=== PATIENT | female | born 1985 | race Caucasian/White ===

== ENCOUNTER → 2018-01-11 | Outpatient (CLI) | payer OTHER | END | disposition home or self-care (01) | LOC: LAB.O 09:24 | PROVIDERS: ATTEND Obstetrics & Gynecology | DX: Z01.818 Encounter for other preprocedural examination (principal) ==

== ENCOUNTER → 2018-01-24 | Outpatient (CLI) | payer OTHER ==
--- NOTE | 2018-01-25 06:29 | CT ---
EXAM DESCRIPTION: Abdomen and pelvis with oral contrast without and with IV contrast:: Computed Tomography. CLINICAL HISTORY: Perineal pain. Recent endometrial procedure. COMPARISON: None. TECHNIQUE: Spiral-axial scans at 5.0 - mm intervals from the lung bases through the pubic symphysis, after water - soluble oral contrast, and scans repeated through the same levels after nonionic IV contrast. Coronal and sagittal 2.0 - mm reconstructions.. Delayed axial helical/5.0 - mm scans, same levels. No adverse reactions. Total Exam DLP: 4140.35 mGy-cm. This exam was performed according to our departmental CT dose-optimization program which includes automated exposure control, adjustment of the mA and/or kV according to patient size and/or use of iterative reconstruction technique; to reduce radiation dose to as low as reasonably achievable (ALARA). FINDINGS: Lung bases and pleura: Negative. Large patient body habitus. Liver, Spleen, Stomach, Adrenal glands: Long axis right lobe 20.5 cm. Heterogeneous fatty density. No focal lesions with normal enhancement oral contrast in the stomach not distended. Other solid organs are negative.. Pancreas/Gallbladder/Ducts: Gallbladder contracted. Duct not dilated. Pancreas negative. Kidneys and Ureters: 2 mm radiodense stone in the inferior collecting system of the right kidney with no hydronephrosis or hydroureter. No pararenal stranding. Mesentery: No stranding fascial thickening free air or free fluid. Aorta: Unremarkable. Small Bowel: Contains oral contrast and normal caliber. Terminal Ileum/Cecum: Oral contrast in the terminal ileum normal caliber. Normal caliber of the cecum and appendix Colon: Diffuse fecal material in the ascending colon normal caliber of the distal descending colon and sigmoid with minimal redundancy. Pelvic Organs: 3 mm cyst in the right adnexa probably in the ovary. Uterus with thickened endometrium or fluid and anteverted. No fluid in the cul-de-sac. Spine and Bony Pelvis: Minimal anterior spondylosis at some levels of the thoracic spine. Abdominal Wall/Back Soft Tissues: Minimal diastases in the mid abdomen. IMPRESSION: 1. Enlarged liver with fatty infiltration/steatosis. No ascites. 2. 2 mm radiodense stone in the inferior right kidney not obstructing. Left kidney and ureters unremarkable. 3. 3 cm cyst or hypoechoic mass in the adnexa probably ovary. Thickened endometrium or fluid, may be post-procedural. Uterus in normal position. No fluid in the cul-de-sac. Consider endovaginal/transpelvic ultrasound if symptoms persist. 4. Diffuse obstipation of the proximal and mid colon.. CRITICAL COMMUNICATION: The critical value was discussed directly by phone with Dr. Duane White at approximately 1700 hours, on January 24, 2018. Electronically signed by: Garret No MD 01/25/2018 6:27 AM CDT Workstation: [id number]
== END ==
LOC: CT 13:18
PROVIDERS: ATTEND Family Medicine
DX: R10.2 Pelvic and perineal pain (principal); K76.0 Fatty (change of) liver, not elsewhere classified; N20.0 Calculus of kidney; K59.09 Other constipation

== ENCOUNTER → 2018-01-28 | Outpatient (CLI) | payer OTHER | LOC: LAB.O 11:52 | PROVIDERS: ATTEND Family Medicine | DX: R50.9 Fever, unspecified (principal); N80.0 Endometriosis of uterus; I80.201 Phlebitis and thrombophlebitis of unspecified deep vessels of right lower extremity; I80.202 Phlebitis and thrombophlebitis of unspecified deep vessels of left lower extremity; D69.1 Qualitative platelet defects ==

== ENCOUNTER → 2018-01-29 | Outpatient (CLI) | payer OTHER ==
--- NOTE | 2018-01-29 16:57 | US ---
EXAM DESCRIPTION: Venous,Lower Extremity LT CLINICAL HISTORY: DVT COMPARISON: None Available. TECHNIQUE: Left lower extremity venous duplex FINDINGS: Doppler evaluation of the left lower extremity deep veins was performed. Normal color flow is seen in the common femoral, superficial femoral, profunda femoral and greater saphenous veins. Normal flow is seen in the popliteal vein and veins below the knee in the calf. Normal venous compressibility and flow augmentation. IMPRESSION: Negative for evidence of deep venous thrombosis on left lower extremity venous Doppler sonogram. Electronically signed by: Cj Ricks MD 01/29/2018 4:56 PM CDT
--- NOTE | 2018-01-29 16:58 | US ---
PROCEDURE: Venous,Lower Extremity RT CLINICAL HISTORY and INDICATION: Right lower extremity pain COMPARISON: None. TECHNIQUE: Hung scale imaging with duplex interrogation of the right lower extremity venous system was performed and multiple static images were obtained. FINDINGS: Utilizing compression and augmentation, there is no deep venous thrombus in the common femoral, superficial femoral or popliteal veins. The posterior tibial and deep peroneal veins are patent and compressible. . The greater saphenous vein at the saphenofemoral junction is patent and compressible. There is no visualization of any subcutaneous fluid collections. There is no visualization of any fluid collections in the right popliteal fossa. There is no evidence of reactive or pathological lymphadenopathy in the evaluated right lower extremity. IMPRESSION: No deep venous thrombosis of the right lower extremity. Location of Interpretation: [id number] Electronically signed by: Maxwell Hinton MD 01/29/2018 4:56 PM CDT Workstation: [id number]
== END ==
LOC: US 14:10
PROVIDERS: ATTEND Family Medicine
DX: I80.201 Phlebitis and thrombophlebitis of unspecified deep vessels of right lower extremity (principal); I80.202 Phlebitis and thrombophlebitis of unspecified deep vessels of left lower extremity; N80.0 Endometriosis of uterus; R50.9 Fever, unspecified